=== PATIENT | female | born 1995 | race Hispanic/Latino ===

== ENCOUNTER 2021-11-28 15:52 | Emergency (ER) | payer MEDICAID ==
[~2021-11-28] VITALS: Ht 157.5 cm; Wt 61.2 kg
[2021-11-28 15:56] VITALS: BP 115/65
[2021-11-28] MEDS ORDERED: AMOX500C2 PO (16:50)
[2021-11-28] MEDS ORDERED: ONDANSETRON ODT 4MG TAB SL ONE (17:00)
== END 2021-11-28 17:02 | disposition home or self-care (01) ==
LOC: EDH 15:52
DX: T16.2XXA Foreign body in left ear, initial encounter (principal); Z90.89 Acquired absence of other organs; X58.XXXA Exposure to other specified factors, initial encounter; Y93.89 Activity, other specified; Y92.89 Other specified places as the place of occurrence of the external cause; Y99.8 Other external cause status